=== PATIENT | male | born 1995 | race Caucasian/White ===

== ENCOUNTER 2019-01-01 03:26 | Emergency (ER) | payer OTHER ==
[2019-01-01] MEDS ORDERED: oxyCODONE/Acetamin 5/325 MG* TAB PO ONE (03:41)
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
[2019-01-01 04:10] VITALS: BP 125/73
== END 2019-01-01 04:05 | disposition home or self-care (01) ==
LOC: ED 03:26
DX: T23.251A Burn of second degree of right palm, initial encounter (principal); T23.152A Burn of first degree of left palm, initial encounter; X19.XXXA Contact with other heat and hot substances, initial encounter; Y93.G3 Activity, cooking and baking; Y92.9 Unspecified place or not applicable; Z88.1 Allergy status to other antibiotic agents
CPT/HCPCS: 99282; A9270-GY